=== PATIENT | male | born 1985 | race Caucasian/White ===

== ENCOUNTER 2017-08-18 19:48 | Emergency (ER) | payer OTHER ==
[~2017-08-18] VITALS: Ht 175.3 cm; Wt 123.4 kg
[~2017-08-18 19:48] MED LIST: ADDERALL XR 2525 MG PO; PROAIR HFA8.5 GM IH
[2017-08-18 20:11] LABS: HEMATOCRIT 41.1 % (38.0-50.0); HEMOGLOBIN 15.1 G/DL (12.5-16.6); MCH 31.7 PG (29.0-34.0); MCHC 36.7 G/DL (30.0-36.0); MCV 86.2 FL (86-99); PLATELET COUNT 238 K/uL (156-360); RBC DIS.WIDTH-CV 12.4 % (11.8-14.6); RED BLOOD COUNT 4.77 M/uL (4.00-5.50); WHITE BLOOD COUNT 11.4 K/uL (4.1-10.2)
[2017-08-18 20:28] LABS: APPEARANCE CLEAR ((CLEAR)); BILIRUBIN NEGATIVE; BLOOD SMALL; COLOR YELLOW ((YELLOW)); GLUCOSE (STRIP) NEGATIVE; KETONES 5; LEUKOCYTES NEGATIVE; NITRITE NEGATIVE; PROTEIN (STRIP) NEGATIVE; SPECIFIC GRAVITY 1.021 (1.000-1.030); UROBILINOGEN 0.2 MG/DL (0.2-1.0)
[2017-08-18 20:34] LABS: ALBUMIN 4.6 g/dL (3.2-4.8); CHLORIDE 105 mEq/L (99-109); POTASSIUM 3.8 mEq/L (3.7-5.4); SODIUM 141 mEq/L (136-147)
[2017-08-18 20:36] LABS: GLUCOSE 104 mg/dL (70-99); TOTAL PROTEIN 7.8 g/dL (6.4-8.3)
[2017-08-18 20:38] LABS: TOTAL BILIRUBIN 0.6 mg/dL (0.0-1.0)
[2017-08-18 20:39] LABS: BACTERIA RARE /HPF; EPITHELIAL CELLS RARE /HPF; MUCUS TRACE /LPF; RED BLOOD CELLS 0-5 /HPF (0-5); UCUL ADDED? NO; WHITE BLOOD CELLS 0-5 /HPF (0-5)
[2017-08-18 20:40] LABS: ALKALINE PHOSPHATASE 82 IU/L (3-129); CREATININE 1.1 mg/dL (0.6-1.3); GFR ESTIMATE (CALCULATED) > 59 mL/min/ (58.99-99999)
[2017-08-18 20:41] LABS: UREA NITROGEN (BUN) 10 mg/dL (9-23)
[2017-08-18 20:42] LABS: AST (GOT) 46 IU/L (2-34)
[2017-08-18 20:43] LABS: ALT (GPT) 119 IU/L (3-49)
[2017-08-19 00:47] VITALS: BP 142/97
== END 2017-08-19 00:48 | disposition home or self-care (01) ==
LOC: EME 19:48
DX: R10.32 Left lower quadrant pain (principal); K92.1 Melena; K76.0 Fatty (change of) liver, not elsewhere classified; I10 Essential (primary) hypertension; F17.200 Nicotine dependence, unspecified, uncomplicated
CPT/HCPCS: 74177; 80053; 81003; 85027; 99281; 99285; J7030